=== PATIENT | male | born 1975 | race Caucasian/White ===

== ENCOUNTER → 2017-06-08 | Outpatient (CLI) | payer OTHER ==
[2017-06-08 15:51] LABS: BASO # 0.1 10*3/uL (0.0-0.1); BASO % 0.7 % (0.0-1.0); EOS # 0.1 10*3/uL (0.0-0.4); HEMATOCRIT 47.5 % (42.0-52.0); HEMOGLOBIN 15.9 g/dl (14.0-18.0); LYMPH # 2.1 10*3/uL (1.3-4.4); LYMPH % 29.5 % (27.0-41.0); MEAN CELL VOLUME 90.1 fl (80.0-94.0); MEAN CORPUSCULAR HGB 30.2 pg (27.0-31.0); MEAN CORPUSCULAR HGB CONC 33.5 g/dl (33.0-37.0); MEAN PLATELET VOLUME 9.5 fl (9.6-12.3); MONO # 0.6 10*3/uL (0.1-1.0); MONO % 8.7 % (3.0-9.0); NEUT # 4.4 10*3/uL (2.3-7.9); PLATELET COUNT AUTOMATED 304 10*3/uL (130-400); RED BLOOD COUNT 5.27 10*6/uL (4.50-5.90); RED CELL DISTRI WIDTH 12.9 % (0-14.5); WHITE BLOOD COUNT 7.3 10*3/uL (4.8-10.8)
[2017-06-08 16:24] LABS: ALBUMIN 3.8 gm/dl (3.1-4.5); ALKALINE PHOSPHATASE 66 U/L (45-117); BUN 9 mg/dl (7-24); CHLORIDE 106 mmol/L (98-107); CREATININE 0.81 mg/dL (0.70-1.30); POTASSIUM 4.1 mmol/L (3.5-5.1); SGOT/AST 22 IU/L (3-35); SGPT/ALT 41 U/L (12-78); SODIUM 140 mmol/L (136-145); TOTAL PROTEIN 7.1 gm/dL (6.4-8.2)
== END | disposition home or self-care (01) ==
LOC: LAB 01:42 → RESCLI 01:42
PROVIDERS: Hospitalist
DX: F45.41 Pain disorder exclusively related to psychological factors (principal)

== ENCOUNTER 2017-07-28 17:34 | Emergency (ER) | payer OTHER ==
[~2017-07-28] VITALS: Ht 170.1 cm; Wt 83.9 kg
[2017-07-28] MEDS ORDERED: CYCLOBENZAPRINE5 M3 PO (20:54)
[2017-07-28] MEDS ORDERED: Motrin,Rufen800 MG PO (20:54)
[2017-07-28] MEDS ORDERED: ULTRAM50 MG PO (20:54)
== END 2017-07-28 21:05 | disposition home or self-care (01) ==
LOC: ED 17:34
DX: S20.211A Contusion of right front wall of thorax, initial encounter (principal); F17.200 Nicotine dependence, unspecified, uncomplicated; Z88.0 Allergy status to penicillin; Z90.49 Acquired absence of other specified parts of digestive tract; W22.8XXA Striking against or struck by other objects, initial encounter; Y93.89 Activity, other specified; Y92.89 Other specified places as the place of occurrence of the external cause; Y99.0 Civilian activity done for income or pay

== ENCOUNTER 2017-08-08 14:30 | Emergency (ER) | payer OTHER ==
[~2017-08-08] VITALS: Wt 83.9 kg
[~2017-08-08 14:30] MED LIST: CYCLOBENZAPRINE5 M3 PO; Motrin,Rufen800 MG PO; ULTRAM50 MG PO
[2017-08-08] MEDS ORDERED: NAPROSYN500 MG PO (14:57)
== END 2017-08-08 15:40 | disposition home or self-care (01) ==
LOC: ED 14:30
DX: S62.334A Displaced fracture of neck of fourth metacarpal bone, right hand, initial encounter for closed fracture (principal); S62.336A Displaced fracture of neck of fifth metacarpal bone, right hand, initial encounter for closed fracture; R03.0 Elevated blood-pressure reading, without diagnosis of hypertension; F17.200 Nicotine dependence, unspecified, uncomplicated; Z90.49 Acquired absence of other specified parts of digestive tract; Z88.0 Allergy status to penicillin; W22.01XA Walked into wall, initial encounter; Y93.89 Activity, other specified; Y92.89 Other specified places as the place of occurrence of the external cause; Y99.9 Unspecified external cause status

== ENCOUNTER 2017-09-16 18:07 | Emergency (ER) | payer OTHER ==
[~2017-09-16] VITALS: Wt 83.9 kg
[~2017-09-16 18:07] MED LIST changes: +NAPROSYN500 MG PO
[2017-09-16] MEDS ORDERED: PROAIR HFA8.5 GM INH (18:57)
[2017-09-16] MEDS ORDERED: TESSALON PERLE100 M1 PO (18:57)
[2017-09-16] MEDS ORDERED: HYCODAN/HYDROMET5 ML PO (18:57)
== END 2017-09-16 22:12 | disposition home or self-care (01) ==
LOC: ED 18:07
DX: R05 Cough (principal); F17.200 Nicotine dependence, unspecified, uncomplicated; Z88.0 Allergy status to penicillin; Z90.49 Acquired absence of other specified parts of digestive tract

== ENCOUNTER → 2017-10-19 | Outpatient (CLI) | payer OTHER ==
[~2017-10-19] MED LIST changes: +HYCODAN/HYDROMET5 ML PO; +PROAIR HFA8.5 GM INH; +TESSALON PERLE100 M1 PO
== END | disposition home or self-care (01) ==
LOC: RESCLI 02:14
DX: F41.1 Generalized anxiety disorder (principal); R91.1 Solitary pulmonary nodule; Z71.6 Tobacco abuse counseling; Z72.0 Tobacco use

== ENCOUNTER 2018-01-16 21:20 | Emergency (ER) | payer OTHER ==
[~2018-01-16] VITALS: Ht 170.1 cm; Wt 81.6 kg
[2018-01-16] MEDS ORDERED: KETOROLAC10 MG PO (22:30)
[2018-01-16] MEDS ORDERED: Orphenadrine C100 MG PO (22:30)
== END 2018-01-16 22:53 | disposition home or self-care (01) ==
LOC: ED 21:20
DX: S16.1XXA Strain of muscle, fascia and tendon at neck level, initial encounter (principal); R42 Dizziness and giddiness; Z90.49 Acquired absence of other specified parts of digestive tract; Z79.899 Other long term (current) drug therapy; Z88.0 Allergy status to penicillin; V49.59XA Passenger injured in collision with other motor vehicles in traffic accident, initial encounter; Y93.89 Activity, other specified; Y92.413 State road as the place of occurrence of the external cause; Y99.9 Unspecified external cause status

== ENCOUNTER 2018-04-12 17:59 | Emergency (ER) | payer OTHER ==
[~2018-04-12] VITALS: Ht 170.1 cm; Wt 80.7 kg
[~2018-04-12 17:59] MED LIST changes: +KETOROLAC10 MG PO; +Orphenadrine C100 MG PO
[2018-04-12 18:18] LABS: BILIRUBIN NEGATIVE (NEGATIVE); BLOOD NEGATIVE (NEGATIVE); CLARITY CLEAR (CLEAR); COLOR YELLOW (YELLOW); GLUCOSE NEGATIVE (NEGATIVE); KETONE NEGATIVE (NEGATIVE); LEUKO ESTERASE NEGATIVE (NEGATIVE); NITRITE NEGATIVE (NEGATIVE); PH 5.5 (5.0-9.0); SPECIFIC GRAVITY >= 1.030 (1.005-1.030)
[2018-04-12 18:25] LABS: BACTERIA 2+; EPITHELIAL CELLS 0-2; RBC 0-2 rbc/hpf (0-2); WBC TNTC wbc/hpf (0-5)
== END 2018-04-12 20:40 | disposition home or self-care (01) ==
LOC: ED 17:59
PROVIDERS: Physician Assistant
DX: A64 Unspecified sexually transmitted disease (principal); F17.200 Nicotine dependence, unspecified, uncomplicated; Z88.0 Allergy status to penicillin

== ENCOUNTER 2018-10-15 20:36 | Emergency (ER) | payer SELFPAY ==
[~2018-10-15] VITALS: Ht 170.1 cm; Wt 81.6 kg
== END 2018-10-15 21:45 | disposition home or self-care (01) ==
LOC: ED 20:36
DX: H16.133 Photokeratitis, bilateral (principal); Z88.0 Allergy status to penicillin; Z90.49 Acquired absence of other specified parts of digestive tract; W89.8XXA Exposure to other man-made visible and ultraviolet light, initial encounter; Y93.89 Activity, other specified; Y92.69 Other specified industrial and construction area as the place of occurrence of the external cause; Y99.0 Civilian activity done for income or pay

== ENCOUNTER → 2018-12-16 | Outpatient (CLI) | payer SELFPAY ==
[~2018-12-16] MED LIST changes: +ACULAR 0.5%3 ML OPH; +TOBRAMYCIN 5 ML5 M1 OPH
[2018-12-16 17:16] LABS: BASO # 0.1 10*3/uL (0.0-0.1); BASO % 0.9 % (0.0-1.0); EOS # 0.4 10*3/uL (0.0-0.4); EOS % 5.1 % (1.0-4.0); HEMATOCRIT 41.8 % (42.0-52.0); HEMOGLOBIN 14.2 g/dl (14.0-18.0); LYMPH # 2.9 10*3/uL (1.3-4.4); LYMPH % 42.9 % (27.0-41.0); MEAN CELL VOLUME 91.3 fl (80.0-94.0); MONO # 0.5 10*3/uL (0.1-1.0); MONO % 6.9 % (3.0-9.0); NEUT % 44.1 % (47.0-73.0); PLATELET COUNT AUTOMATED 264 10*3/uL (130-400); RED BLOOD COUNT 4.58 10*6/uL (4.50-5.90); RED CELL DISTRI WIDTH 12.8 % (0-14.5); WHITE BLOOD COUNT 6.8 10*3/uL (4.8-10.8)
[2018-12-16 17:45] LABS: ALBUMIN 3.6 gm/dl (3.1-4.5); ALKALINE PHOSPHATASE 83 U/L (45-117); BUN 16 mg/dl (7-24); CHLORIDE 106 mmol/L (98-107); CHOLESTEROL 148 mg/dL (<200); CREATININE 0.85 mg/dL (0.70-1.30); HDL CHOLESTEROL 25 mg/dl (40-60); POTASSIUM 4.1 mmol/L (3.5-5.1); SGOT/AST 37 IU/L (3-35); SGPT/ALT 76 U/L (12-78); SODIUM 140 mmol/L (136-145); TRIGLYCERIDES 521 mg/dl (<150)
== END | disposition home or self-care (01) ==
LOC: LAB 16:39
PROVIDERS: Pediatrics
DX: J40 Bronchitis, not specified as acute or chronic (principal); J18.9 Pneumonia, unspecified organism

== ENCOUNTER 2019-02-21 09:06 | Emergency (ER) | payer SELFPAY ==
[~2019-02-21] VITALS: Ht 170.1 cm; Wt 81.6 kg
[~2019-02-21 09:06] MED LIST changes: -ACULAR 0.5%3 ML OPH; -TOBRAMYCIN 5 ML5 M1 OPH
== END 2019-02-21 10:00 | disposition home or self-care (01) ==
LOC: ED 09:06
DX: S63.502A Unspecified sprain of left wrist, initial encounter (principal); Z88.0 Allergy status to penicillin; Z88.8 Allergy status to other drugs, medicaments and biological substances; Z90.49 Acquired absence of other specified parts of digestive tract; W22.8XXA Striking against or struck by other objects, initial encounter; Y93.89 Activity, other specified; Y92.89 Other specified places as the place of occurrence of the external cause; Y99.8 Other external cause status

== ENCOUNTER 2019-04-22 14:29 | Emergency (ER) | payer OTHER ==
[~2019-04-22] VITALS: Ht 170.1 cm; Wt 81.6 kg
[2019-04-22] MEDS ORDERED: ACULAR 0.5%3 ML OPH (15:35)
[2019-04-22] MEDS ORDERED: TOBRAMYCIN 5 ML5 M1 OPH (15:35)
== END 2019-04-22 16:59 | disposition home or self-care (01) ==
LOC: ED 14:29
DX: S05.02XA Injury of conjunctiva and corneal abrasion without foreign body, left eye, initial encounter (principal); Z88.0 Allergy status to penicillin; Z88.8 Allergy status to other drugs, medicaments and biological substances; Z90.49 Acquired absence of other specified parts of digestive tract; X58.XXXA Exposure to other specified factors, initial encounter; Y93.89 Activity, other specified; Y92.69 Other specified industrial and construction area as the place of occurrence of the external cause; Y99.8 Other external cause status

== ENCOUNTER 2020-01-03 07:17 | Emergency (ER) | payer BC ==
[~2020-01-03] VITALS: Ht 170.1 cm; Wt 82.6 kg
[~2020-01-03 07:17] MED LIST changes: +ACULAR 0.5%3 ML OPH; +TOBRAMYCIN 5 ML5 M1 OPH
== END 2020-01-03 07:52 | disposition home or self-care (01) ==
LOC: ED 07:17
DX: J30.2 Other seasonal allergic rhinitis (principal); R10.9 Unspecified abdominal pain; R07.89 Other chest pain; Z91.048 Other nonmedicinal substance allergy status; F17.200 Nicotine dependence, unspecified, uncomplicated; Z88.0 Allergy status to penicillin; Z88.8 Allergy status to other drugs, medicaments and biological substances; Z90.49 Acquired absence of other specified parts of digestive tract

== ENCOUNTER 2020-09-10 11:52 | Emergency (ER) | payer BC ==
[~2020-09-10] VITALS: Wt 83.9 kg
[2020-09-10] MEDS ORDERED: PREDNISONE50 MG PO (15:42)
== END 2020-09-10 16:09 | disposition home or self-care (01) ==
LOC: ED 11:52
DX: M79.671 Pain in right foot (principal); Z88.0 Allergy status to penicillin; Z88.8 Allergy status to other drugs, medicaments and biological substances; Z90.49 Acquired absence of other specified parts of digestive tract

== ENCOUNTER 2021-06-02 11:53 | Emergency (ER) | payer BC ==
[~2021-06-02] VITALS: Ht 170.1 cm; Wt 81.6 kg
[~2021-06-02 11:53] MED LIST changes: +PREDNISONE50 MG PO
[2021-06-02] MEDS ORDERED: ALBUTEROL2.5 MG/0.5 INH ×3 (14:45→15:43)
== END 2021-06-02 14:39 | disposition home or self-care (01) ==
LOC: ED 11:53
DX: J40 Bronchitis, not specified as acute or chronic (principal); Z20.822 Contact with and (suspected) exposure to COVID-19; Z90.49 Acquired absence of other specified parts of digestive tract; Z88.0 Allergy status to penicillin; Z88.6 Allergy status to analgesic agent; Z79.899 Other long term (current) drug therapy

== ENCOUNTER → 2021-06-12 | Outpatient (CLI) | payer BC ==
[~2021-06-12] MED LIST changes: +ALBUTEROL2.5 MG/0.5 INH
== END | disposition home or self-care (01) ==
LOC: COVID19 16:47
PROVIDERS: ATTEND Internal Medicine
DX: Z11.52 Encounter for screening for COVID-19 (principal)

== ENCOUNTER 2021-07-13 13:43 | Emergency (ER) | payer BC ==
[~2021-07-13] VITALS: Ht 162.5 cm; Wt 83.9 kg
[2021-07-13] MEDS ORDERED: TYLENOL325 M1 PO (14:14)
[2021-07-13] MEDS ORDERED: NAPROXEN250 MG PO (14:14)
[2021-07-13] MEDS ORDERED: SEPTDS PO (14:14)
== END 2021-07-13 15:04 | disposition home or self-care (01) ==
LOC: ED 13:43
DX: L02.31 Cutaneous abscess of buttock (principal); Z88.0 Allergy status to penicillin; Z88.8 Allergy status to other drugs, medicaments and biological substances; F17.200 Nicotine dependence, unspecified, uncomplicated

== ENCOUNTER 2022-08-23 08:39 | Emergency (ER) | payer BC ==
[~2022-08-23] VITALS: Wt 83.9 kg
[~2022-08-23 08:39] MED LIST changes: +NAPROXEN250 MG PO; +SEPTDS PO; +TYLENOL325 M1 PO
[2022-08-23] MEDS ORDERED: NAPROXEN250 MG PO (09:04)
[2022-08-23] MEDS ORDERED: TAMIFLU 75MG CA75 MG PO (09:04)
[2022-08-23] MEDS ORDERED: TYLENOL325 M1 PO (09:04)
== END 2022-08-23 09:08 | disposition home or self-care (01) ==
LOC: ED 08:39
DX: R05.9 Cough, unspecified (principal); Z20.822 Contact with and (suspected) exposure to COVID-19; R19.7 Diarrhea, unspecified; R51.9 Headache, unspecified; Z88.0 Allergy status to penicillin; Z88.8 Allergy status to other drugs, medicaments and biological substances; Z90.49 Acquired absence of other specified parts of digestive tract

== ENCOUNTER 2023-07-05 09:50 | Emergency (ER) | payer BC ==
[~2023-07-05] VITALS: Ht 170.1 cm; Wt 86.2 kg
[~2023-07-05 09:50] MED LIST changes: +TAMIFLU 75MG CA75 MG PO
[2023-07-05] MEDS ORDERED: TRAMADOL HCL50 MG PO ×4 (10:32→11:19)
[2023-07-05] MEDS ORDERED: CETRAXAL1 EACH OU ×2 (10:32)
[2023-07-05] MEDS ORDERED: CLARITIN10 MG PO (10:41)
[2023-07-05] MEDS ORDERED: CETRAXAL1 EACH OT ×2 (11:06→11:19)
== END 2023-07-05 11:17 | disposition home or self-care (01) ==
LOC: ED 09:50
DX: H16.133 Photokeratitis, bilateral (principal); H10.9 Unspecified conjunctivitis; J44.9 Chronic obstructive pulmonary disease, unspecified; Z88.0 Allergy status to penicillin; Z88.8 Allergy status to other drugs, medicaments and biological substances; Z90.49 Acquired absence of other specified parts of digestive tract; F17.290 Nicotine dependence, other tobacco product, uncomplicated; W89.8XXA Exposure to other man-made visible and ultraviolet light, initial encounter; Y93.89 Activity, other specified; Y92.89 Other specified places as the place of occurrence of the external cause; Y99.0 Civilian activity done for income or pay

== ENCOUNTER 2023-12-24 23:18 | Emergency (ER) | payer OTHER ==
[~2023-12-24 23:18] MED LIST changes: +CETRAXAL1 EACH OT; +CETRAXAL1 EACH OU; +CLARITIN10 MG PO; +TRAMADOL HCL50 MG PO
[2023-12-24] MEDS ORDERED: Midazolam Hydrochloride 2 MG/2 ML VIAL IM ONE (23:30)
[2023-12-24] MEDS ORDERED: TRAMADOL HCL50 MG PO (23:32)
[2023-12-24] MEDS ORDERED: CETRAXAL1 EACH OT (23:32)
[2023-12-24] MEDS ORDERED: Acetaminophen/Oxycodone 5 MG/325 MG TABLET PO ONE (23:45)
== END 2023-12-25 00:26 | disposition home or self-care (01) ==
LOC: ED 23:18
DX: H16.133 Photokeratitis, bilateral (principal); H10.9 Unspecified conjunctivitis; J44.9 Chronic obstructive pulmonary disease, unspecified; Z88.0 Allergy status to penicillin; Z88.8 Allergy status to other drugs, medicaments and biological substances; Z90.49 Acquired absence of other specified parts of digestive tract; F17.200 Nicotine dependence, unspecified, uncomplicated; W89.8XXA Exposure to other man-made visible and ultraviolet light, initial encounter; Y93.89 Activity, other specified; Y92.89 Other specified places as the place of occurrence of the external cause; Y99.8 Other external cause status

== ENCOUNTER 2024-03-29 01:20 | Emergency (ER) | payer OTHER ==
[~2024-03-29] VITALS: Ht 170.1 cm; Wt 79.4 kg
[2024-03-29 01:46] LABS: BASO # 0.1 10*3/uL (0.0-0.1); BASO % 0.8 % (0.0-1.0); EOS # 0.1 10*3/uL (0.0-0.4); HEMATOCRIT 45.9 % (42.0-52.0); LYMPH # 2.6 10*3/uL (1.3-4.4); LYMPH % 33.4 % (27.0-41.0); MEAN CELL VOLUME 88.3 fl (80.0-94.0); MEAN CORPUSCULAR HGB 30.6 pg (27.0-31.0); MEAN CORPUSCULAR HGB CONC 34.6 g/dl (33.0-37.0); MEAN PLATELET VOLUME 8.6 fl (9.6-12.3); MONO # 0.5 10*3/uL (0.1-1.0); MONO % 6.2 % (3.0-9.0); NEUT # 4.5 10*3/uL (2.3-7.9); NEUT % 58.3 % (47.0-73.0); PLATELET COUNT AUTOMATED 354 10*3/uL (130-400); RED CELL DISTRI WIDTH 12.3 % (0-14.5); WHITE BLOOD COUNT 7.8 10*3/uL (4.8-10.8)
[2024-03-29 02:08] LABS: ALKALINE PHOSPHATASE 65 U/L (46-116); BUN 7 mg/dl (9-23); CHLORIDE 107 mmol/L (98-107); SGPT/ALT 40 U/L (5-49); TOTAL PROTEIN 7.1 gm/dL (6.0-8.0)
[2024-03-29] MEDS ORDERED: LORazepam 1 MG TAB PO ONE (02:20)
== END 2024-03-29 04:38 | disposition home or self-care (01) ==
LOC: ED 01:20
PROVIDERS: Internal Medicine
DX: F41.9 Anxiety disorder, unspecified (principal); J44.9 Chronic obstructive pulmonary disease, unspecified; Z63.4 Disappearance and death of family member; Z88.0 Allergy status to penicillin; Z88.8 Allergy status to other drugs, medicaments and biological substances; Z90.49 Acquired absence of other specified parts of digestive tract

== ENCOUNTER → 2024-11-07 | Outpatient (CLI) | payer OTHER ==
[2024-11-07 12:06] LABS: TOTAL PROTEIN 7.1 gm/dL (6.0-8.0); VALPROIC ACID (DEPAKENE) 61.6 ug/ml (50-100)
== END | disposition home or self-care (01) ==
LOC: LAB 11:14
DX: F39 Unspecified mood [affective] disorder (principal); Z79.899 Other long term (current) drug therapy

== ENCOUNTER 2025-07-28 15:46 | Emergency (ER) | payer SELFPAY ==
[~2025-07-28] VITALS: Wt 81.6 kg
[2025-07-28] MEDS ORDERED: IOHEXOL 350 MG/ML 100 ML VIAL IV ONE ×2 (16:00→16:23)
[2025-07-28] MEDS ORDERED: SODIUM CHLORIDE 0.9% 100 ML BAG IV ONE (16:00)
[2025-07-28] MEDS ORDERED: SODIUM CHLORIDE 0.9% 100 ML IV ONE (16:23)
[2025-07-28 16:29] LABS: BASO # 0.0 10*3/uL (0.0-0.1); BASO % 0.2 % (0.0-1.0); EOS # 0.0 10*3/uL (0.0-0.4); EOS % 0.0 % (1.0-4.0); MEAN CELL VOLUME 90.0 fl (80.0-94.0); MEAN CORPUSCULAR HGB 30.1 pg (27.0-31.0); MEAN PLATELET VOLUME 8.6 fl (9.6-12.3); MONO # 1.0 10*3/uL (0.1-1.0); MONO % 9.5 % (3.0-9.0); NEUT # 7.6 10*3/uL (2.3-7.9); NEUT % 76.0 % (47.0-73.0); NUCLEATED RED BLOOD CELL 0.0 % (0.0-0.0); NUCLEATED RED BLOOD CELL 0.0 10*3/uL (0.0-0.0); PLATELET COUNT AUTOMATED 249 10*3/uL (130-400); RED CELL DISTRI WIDTH 12.7 % (0-14.5)
[2025-07-28 16:50] LABS: ACT PARTIAL THROMBO TIME 24.7 SECONDS (20.0-32.1)
[2025-07-28 16:55] LABS: CPK 15642 U/L (34-171); MYOGLOBIN > 10000.0 ng/ml (16-116)
[2025-07-28] MEDS ORDERED: ASPIRIN, CHEWABLE 81 MG TAB PO ONE (18:05)
[2025-07-28 18:20] LABS: BILIRUBIN Negative (Negative); BLOOD 3+ (Negative); CLARITY Cloudy (Clear); COLOR Orange (Yellow); KETONE Trace (Negative); LEUKO ESTERASE Trace (Negative); NITRITE Negative (Negative); PH 5.5 (4.5-8.0); SPECIFIC GRAVITY >= 1.030 (1.001-1.030); UROBILINOGEN 0.2 E.U./dl (0.0-1.0)
[2025-07-28 18:41] LABS: BACTERIA 2+; RBC 16-20 rbc/hpf (0-2)
== END 2025-07-28 23:48 | disposition short-term general hospital (02) ==
LOC: ED 15:46
PROVIDERS: Student in an Organized Health Care Education/Training Program
DX: I63.9 Cerebral infarction, unspecified (principal); R79.89 Other specified abnormal findings of blood chemistry; J44.9 Chronic obstructive pulmonary disease, unspecified; Z90.49 Acquired absence of other specified parts of digestive tract; Z88.0 Allergy status to penicillin; Z88.1 Allergy status to other antibiotic agents